=== PATIENT | female | born 1955 ===

== ENCOUNTER → 2021-11-01 08:03 | Outpatient (BNVA) | payer MEDICARE, MEDICAID, SELFPAY | PROVIDERS: PCP Internal Medicine; Visit Provider Nurse Practitioner Family | DX: M47.816 Spondylosis without myelopathy or radiculopathy, lumbar region (principal); M25.551 Pain in right hip; M53.3 Sacrococcygeal disorders, not elsewhere classified; M79.18 Myalgia, other site; G89.4 Chronic pain syndrome | CPT/HCPCS: 99202 ==